=== PATIENT | female | born 1970 | race Caucasian/White ===

== ENCOUNTER 2016-10-25 18:17 | Emergency (ER) | payer MEDICARE, OTHER ==
[2016-10-25 15:58] LABS: ASCORBIC ACID (UR NOT ORDER) NEG (NEG); BILIRUBIN, URINE NEGATIVE (NEG); ER URINALYSIS TAT 0 Hrs 00 Mins; KETONE, URINE 20 MG/DL (NEG); LEUKOCYTE ESTERASE(NOT OR NEG (NEG); NITRITE (URINE) NEG (NEG); WBC (NOT ORDERED) (RFLEX) 2 (0-5)
[2016-10-25 15:58] LABS: BASOPHILS 0.4 %; BASOPHILS ABSOLUTE 0.02 10/3/uL (0.0-0.16); EOSINOPHILS 0 %; ER CBC TAT 0 Hrs 10 Mins; IMMATURE GRANULOCYTES 0.4 %; IMMATURE GRANULOCYTES ABSOLUTE 0.02 10/3/uL (0.0-0.11); LYMPHOCYTES 13.8 %; LYMPHOCYTES ABSOLUTE 0.64 10/3/uL (0.67-4.30); MEAN CORPUS HGB CONC 34.1 g/dL (32.0-36.0); MEAN CORPUSCULAR HEMOGLOB 33.6 pg (26.0-34.0); MEAN CORPUSCULAR VOLUME 98.3 fL (80-100); MEAN PLATELET VOLUME 10.7 fL (9.2-13.0); MONOCYTES 11.9 %; MONOCYTES ABSOLUTE 0.55 10/3/uL (0.21-1.20); NEUTROPHILS 73.5 %; NEUTROPHILS ABSOLUTE 3.41 10/3/uL (2.02-8.40); PLATELET COUNT 203 10/3/uL (150-400); RED CELL COUNT 4.17 10/6/uL (4.0-5.6); WHITE BLOOD CELLS 4.6 10/3/uL (4.5-10.5)
[2016-10-25 16:03] LABS: MANUAL DIFF NO %; RBC DISTRIBUTION WIDTH 12.9 % (12.0-16.0)
[2016-10-25 16:07] LABS: INFLUENZA A SCREEN NEGATIVE (NEGATIVE); INFLUENZA B SCREEN NEGATIVE (NEGATIVE)
[2016-10-25 16:16] LABS: BUN (BLOOD UREA NITROGEN) 8 MG/DL (6-23); CALCIUM, SERUM 10.8 MG/DL (8.5-10.4); CHLORIDE, SERUM 102 MMOL/L (96-112); CO2 (CARBON DIOXIDE) 23 MMOL/L (24-34); CREATININE 0.65 MG/DL (0.55-1.02); GFR AFRICAN AMERICAN 123 ML/MIN (>=60); GFR NON AFRICAN AMERICAN 106 ML/MIN (>=60); GLUCOSE, SERUM 192 MG/DL (60-99); POTASSIUM, SERUM 3.8 MMOL/L (3.5-5.3); SGOT(AST) 49 U/L (5-40); SGPT(ALT) 46 U/L (5-65); SODIUM, SERUM 138 MMOL/L (135-148); TOTAL BILIRUBIN 0.6 MG/DL (0-1.2); TOTAL PROTEIN 8.4 G/DL (6.0-8.5)
[2016-10-25 16:17] LABS: A/G RATIO 0.8 (0.7-1.9); ALBUMIN 3.8 G/DL (3.5-5.0); ALKALINE PHOSPHATASE 46 U/L (45-117); GLOBULIN 4.6 G/DL (2.5-4.1)
[2016-10-25 16:47] LABS: PROCALCITONIN <0.05 ng/mL (<0.5)
[~2016-10-25 18:17] MED LIST: ACIPHEX PO; ADVIL PO; AMB10 PO; B12; B12 PO; BENTYL10 PO; BENTYL20 PO; CALTRA600D PO; CHEMO TREATMENT; CITRACAL PO; CLARIT10 PO; COMP10B PO; CRANBERRY; CRANBERRY300 MG PO; DITRO5 PO; FISH-EPA1000 MG PO; GLUCCHONDR PO; GLUCOTRO10 PO; HUMALOG SC; HUMAPUMP SC; HUMULIN R1 ML SC; LANTUS SC; LEVEMIR SC; LORTAB10 PO; MAGONATE PO; MAGOX4 PO; MAGTRATE500 MG PO; MELATONIN5 M1 PO; MIRALAXPKT PO; MSCONT15 PO; MSCONTIN PO; MSIMMR15 PO; MULTIPLE VIT PO; MULTIVITAMI1 PO; NEUR100 PO; NEXIUM40 PO; NOLV10 PO; NORCO1 TAB PO; NOVLOGPUMP SC; NOVOLOG; OS500+D PO; PAXIL30 MG PO; PAXIL40 MG PO; PHENADOZ25 MG PR; PHENADOZ25 MG RE; PR25 PO; PR25R PO; PR25R PR; PRILOSEC40 MG PO; PRIN5 PO; PROMEGA PO; PROTONIX PO; REG PO; SENTAB PO; SUDAFED 12HR120 MG PO; SYN.05 PO; VITAMIN B-121000 MC1 SL; VITAMIN D1000 UNI1 PO; VITAMIN D31000 UNIT PO; VITE1000 PO; XELODA PO; ZESTRIL20 MG PO; ZYRTEC ALLGY10 MG PO; [UNRECOGNIZED DRUG - OTHER] PO; [UNRECOGNIZED DRUG - OTHER] PO
[2016-11-23] MEDS ORDERED: SYN.05 PO (19:55)
[2016-11-23] MEDS ORDERED: LOM PO (19:56)
[2016-11-23] MEDS ORDERED: MSIMMR15 PO (19:56)
[2016-11-23] MEDS ORDERED: PR25 PO (19:59)
[2016-11-23] MEDS ORDERED: NEXIUM40 PO (19:59)
[2016-11-23] MEDS ORDERED: MSCONTIN PO (19:59)
[2016-11-23] MEDS ORDERED: NOVLOGPUMP SC (20:00)
[2016-11-23] MEDS ORDERED: NEUR100 PO (20:01)
[2016-11-23] MEDS ORDERED: NEUR300 PO (20:01)
[2016-11-23] MEDS ORDERED: [UNRECOGNIZED DRUG - OTHER] TOP (20:04)
[2016-11-23] MEDS ORDERED: MARI5 PO (20:05)
[2016-11-23] MEDS ORDERED: XGEVA120 MG/1.7 SC (20:06)
[2016-11-23] MEDS ORDERED: GRANISETRON SC (20:09)
[2016-11-23] MEDS ORDERED: [UNRECOGNIZED DRUG - OTHER] PO (20:10)
[2016-11-23] MEDS ORDERED: CALTRA600D PO (20:10)
[2016-11-23] MEDS ORDERED: CARBOPLATIN150 MG IV (20:11)
[2017-03-11] MEDS ORDERED: NEUR100 PO (15:20)
[2017-03-11] MEDS ORDERED: FLOVENT220 INH (15:20)
[2017-03-11] MEDS ORDERED: NEUR300 PO (15:20)
[2017-03-11] MEDS ORDERED: LOM PO (15:21)
[2017-03-11] MEDS ORDERED: MSCONTIN PO (15:21)
[2017-03-11] MEDS ORDERED: ATV1 PO (15:21)
[2017-03-11] MEDS ORDERED: CALTRA600D PO (15:22)
[2017-03-11] MEDS ORDERED: XGEVA120 MG/1.7 SC (15:23)
[2017-03-11] MEDS ORDERED: PREVALITE4 G1 PO (15:24)
[2017-03-11] MEDS ORDERED: MSIMMR15 PO (15:25)
[2017-03-11] MEDS ORDERED: PR25 PO (15:25)
[2017-03-11] MEDS ORDERED: NEXIUM40 PO (15:26)
[2017-03-11] MEDS ORDERED: NOVLOGPUMP SC (15:29)
[2017-03-11] MEDS ORDERED: CHEMOTHERAPY IV (15:30)
== END 2016-10-25 20:18 | disposition home or self-care (01) ==
LOC: ER 18:17
PROVIDERS: Emergency Medicine
DX: R19.7 Diarrhea, unspecified (principal); R11.2 Nausea with vomiting, unspecified; C50.919 Malignant neoplasm of unspecified site of unspecified female breast; E10.9 Type 1 diabetes mellitus without complications; I10 Essential (primary) hypertension; J45.909 Unspecified asthma, uncomplicated; Z91.041 Radiographic dye allergy status; Z79.4 Long term (current) use of insulin; Z79.899 Other long term (current) drug therapy
CPT/HCPCS: 71010; 80053; 81001; 82150; 83690; 84145; 85025; 87040; 87804; 96374; 99284; J2550

== ENCOUNTER 2016-11-25 16:08 | Inpatient (IN) | payer MEDICARE, OTHER ==
--- NOTE | ~2016-11-25 | HP ---
History And Physical [id number] [place]. [address] NAME: BETH MILLIGAN : 68 STATUS : ADM IN [facility]#: [id number] AGE: 46 ADM/REG DATE : 11/25/16 MR#: [id number] REPORT SERV DATE: 11/25/16 DICTATED BY: DILIP SETHI DATE: 11/25/16 REPORT STATUS : Draft TRANSCRIBED BY: MODJeaneth DATE: 11/25/16 DATE OF ADMISSION: 11/25/2016 CHIEF COMPLAINT: Nausea, vomiting, and diarrhea. HISTORY OF PRESENT ILLNESS: The patient is a 46-year-old female with known metastatic breast cancer; type 1 diabetes, on insulin pump; and history of gastroparesis, who presented to Dr. Child's office today after discharge from the hospital yesterday. The patient reports that yesterday as soon as she got in the car to go home, she felt more sick. She does report she felt fine when she got discharged from the hospital. Over the course of the night, she started having more nausea and vomiting with diarrhea again. She did take a suppository of Phenergan and felt a little better, but woke up this morning still nauseous and vomiting. Notably, she did not put her insulin pump on this morning and her last dose of insulin was at approximately 9 a.m. She has been unable to keep much down. She did eat some Cheetos in the oncology office today without much difficulty. She did also have a stool, which she was able to provide a sample for in Dr. Child's office. REVIEW OF SYSTEMS: Obtained and is negative with the exception of above HPI. PAST MEDICAL HISTORY: Includes: 1. Metastatic breast cancer. Last dose of chemo, 11/18/2016. 2. Type 1 diabetic, manages on insulin pump. 3. Gastroparesis. 4. Asthma. 5. GERD. 6. Hypertension. PAST SURGICAL HISTORY: Rotator cuff repair, , esophageal stricture with multiple dilatation. SOCIAL HISTORY: Quit smoking at age 24. Denies significant alcohol abuse. FAMILY HISTORY: She did have a family member with lung cancer. HOME MEDICATIONS: List pending at this time to review. PHYSICAL EXAMINATION: VITAL SIGNS: The patient is afebrile, saturating 99% on room air, blood pressure 156/71, pulse of 84. GENERAL: This is a pleasant female, who is alert and oriented x3, in no acute distress. NECK: Supple. LUNGS: Clear to auscultation bilaterally with no wheezes, rales, or rhonchi. The patient has normal respiratory effort. CARDIOVASCULAR: Regular rate and rhythm. HEENT: Moist mucous membranes. Sclerae anicteric. History And Physical [address] [address] NAME: BETH MILLIGAN [place]ERR[place] : 68 STATUS : ADM IN [facility]#: [id number] AGE: 46 ADM/REG DATE : 11/25/16 MR#: [id number] REPORT SERV DATE: 11/25/16 DICTATED BY: DILIP SETHI DATE: 11/25/16 REPORT STATUS : Draft TRANSCRIBED BY: NIRAJ DATE: 11/25/16 ABDOMEN: Soft, nontender, and nondistended. EXTREMITIES: Warm and well perfused. No edema. SKIN: Warm, dry, and intact with no rash. NEUROLOGIC: Cranial nerves II through XII are grossly intact. Face is symmetric. Tongue is midline. LABORATORY DATA: From yesterday reviewed. ASSESSMENT AND PLAN: A 46-year-old with known metastatic breast cancer, presenting with nausea, vomiting, and diarrhea. The patient did better yesterday while in the hospital, however, had recurrence of symptoms at home and this could be her gastroparesis. Also, we will check an MRI to rule out any brain metastases. Stool studies have been ordered. We will provide supportive care. We will have her eat a diet as tolerated. 1. Type 1 diabetes. The patient can manage her own insulin pump. She does not have it with her, although is in route. Blood sugar was about 220, just checked. We will give her 4 units of NovoLog and recheck in about two hours. 2. Metastatic breast cancer status post carboplatin on 11/18/2016. Dr. Patti Child will follow along. 3. Code status is full. Deep vein thrombosis prophylaxis with enoxaparin. FERNY/NIRAJ Dilip Sethi MD / [id number] CC: Dilip Sethi MD
--- NOTE | ~2016-11-25 | DS ---
Discharge Summary [facility] [address] [place]. [address] NAME: BETH MILLIGAN : 68 STATUS : DIS IN PAT#: [id number] AGE: 46 ADM/REG DATE : 11/25/16 MR#: [id number] REPORT SERV DATE: 11/28/16 DICTATED BY: DILIP SETHI DATE: 11/27/16 REPORT STATUS : Draft TRANSCRIBED BY: MODL DATE: 11/27/16 ADMISSION DATE: 11/25/2016 DISCHARGE DATE: 11/27/2016 CHIEF COMPLAINT: Nausea, vomiting, diarrhea. DISCHARGING DIAGNOSES: 1. Nausea, vomiting, diarrhea, possibly due to gastroenteritis versus related to chemo. This has resolved. 2. Type 1 diabetes. 3. Gastroparesis. 4. Metastatic breast cancer. 5. Hypokalemia. HISTORY OF PRESENT ILLNESS: Please see full H and P for details regarding initial presentation. HOSPITAL COURSE: The patient was admitted to the hospital and given supportive care. She had no issues of diarrhea in the hospital. She was C diff negative in the office. She has had some nausea, although no vomiting and tolerating a diet and eager to go home. She will be discharged home. MEDICATIONS: Same as admission. TIME SPENT ON DISCHARGE: Less than 30 minutes. FOLLOWUP: With Dr. Patti Child next week. FERNY/NIRAJ Dilip Sethi MD / [id number] CC: Dilip Sethi MD
[~2016-11-25 16:08] MED LIST changes: +CARBOPLATIN150 MG IV; +GRANISETRON SC; +LOM PO; +MARI5 PO; +NEUR300 PO; +XGEVA120 MG/1.7 SC; +[UNRECOGNIZED DRUG - OTHER] PO; +[UNRECOGNIZED DRUG - OTHER] TOP
[2016-11-25 18:01] LABS: BASOPHILS 0.4 %; BASOPHILS ABSOLUTE 0.02 10/3/uL (0.0-0.16); EOSINOPHILS 1.5 %; EOSINOPHILS ABSOLUTE 0.07 10/3/uL (0.0-0.53); HEMATOCRIT 35.2 % (36.0-48.0); IMMATURE GRANULOCYTES 0.2 %; IMMATURE GRANULOCYTES ABSOLUTE 0.01 10/3/uL (0.0-0.11); LYMPHOCYTES 24.2 %; LYMPHOCYTES ABSOLUTE 1.16 10/3/uL (0.67-4.30); MEAN CORPUS HGB CONC 34.1 g/dL (32.0-36.0); MEAN CORPUSCULAR HEMOGLOB 33.6 pg (26.0-34.0); MEAN CORPUSCULAR VOLUME 98.6 fL (80-100); MONOCYTES 18.6 %; MONOCYTES ABSOLUTE 0.89 10/3/uL (0.21-1.20); NEUTROPHILS 55.1 %; NEUTROPHILS ABSOLUTE 2.64 10/3/uL (2.02-8.40); PLATELET COUNT 250 10/3/uL (150-400); RBC DISTRIBUTION WIDTH 12.9 % (12.0-16.0); RED CELL COUNT 3.57 10/6/uL (4.0-5.6); WHITE BLOOD CELLS 4.8 10/3/uL (4.5-10.5)
[2016-11-25 18:02] LABS: MANUAL DIFF NO %
[2016-11-25 18:12] LABS: BUN (BLOOD UREA NITROGEN) 7 MG/DL (6-23); CALCIUM, SERUM 8.8 MG/DL (8.5-10.4); CHLORIDE, SERUM 104 MMOL/L (96-112); CO2 (CARBON DIOXIDE) 28 MMOL/L (24-34); CREATININE 0.79 MG/DL (0.55-1.02); GFR AFRICAN AMERICAN 103 ML/MIN (>=60); GFR NON AFRICAN AMERICAN 89 ML/MIN (>=60); POTASSIUM, SERUM 3.6 MMOL/L (3.5-5.3); SODIUM, SERUM 139 MMOL/L (135-148)
[2016-11-25 18:13] LABS: GLUCOSE, SERUM 217 MG/DL (60-99)
[2016-11-26 07:40] LABS: BASOPHILS 0.6 %; BASOPHILS ABSOLUTE 0.02 10/3/uL (0.0-0.16); EOSINOPHILS 2.6 %; EOSINOPHILS ABSOLUTE 0.09 10/3/uL (0.0-0.53); HEMOGLOBIN 10.9 g/dL (12.0-16.0); LYMPHOCYTES 28.2 %; LYMPHOCYTES ABSOLUTE 0.99 10/3/uL (0.67-4.30); MEAN CORPUS HGB CONC 34.6 g/dL (32.0-36.0); MEAN CORPUSCULAR HEMOGLOB 33.6 pg (26.0-34.0); MEAN CORPUSCULAR VOLUME 97.2 fL (80-100); MONOCYTES 16.2 %; MONOCYTES ABSOLUTE 0.57 10/3/uL (0.21-1.20); NEUTROPHILS 52.4 %; NEUTROPHILS ABSOLUTE 1.84 10/3/uL (2.02-8.40); PLATELET COUNT 213 10/3/uL (150-400); RBC DISTRIBUTION WIDTH 12.9 % (12.0-16.0); RED CELL COUNT 3.24 10/6/uL (4.0-5.6); WHITE BLOOD CELLS 3.5 10/3/uL (4.5-10.5)
[2016-11-26 07:41] LABS: HEMATOCRIT 31.5 % (36.0-48.0); MANUAL DIFF NO %
[2016-11-26 07:51] LABS: BUN (BLOOD UREA NITROGEN) 8 MG/DL (6-23); CALCIUM, SERUM 7.5 MG/DL (8.5-10.4); CHLORIDE, SERUM 109 MMOL/L (96-112); CO2 (CARBON DIOXIDE) 24 MMOL/L (24-34); CREATININE 0.61 MG/DL (0.55-1.02); GFR AFRICAN AMERICAN 125 ML/MIN (>=60); GFR NON AFRICAN AMERICAN 108 ML/MIN (>=60); GLUCOSE, SERUM 78 MG/DL (60-99); POTASSIUM, SERUM 3.4 MMOL/L (3.5-5.3); SODIUM, SERUM 143 MMOL/L (135-148)
[2017-03-11] MEDS ORDERED: NEUR300 PO (15:20)
[2017-03-11] MEDS ORDERED: NEUR100 PO (15:20)
[2017-03-11] MEDS ORDERED: FLOVENT220 INH (15:20)
[2017-03-11] MEDS ORDERED: LOM PO (15:21)
[2017-03-11] MEDS ORDERED: MSCONTIN PO (15:21)
[2017-03-11] MEDS ORDERED: ATV1 PO (15:21)
[2017-03-11] MEDS ORDERED: CALTRA600D PO (15:22)
[2017-03-11] MEDS ORDERED: XGEVA120 MG/1.7 SC (15:23)
[2017-03-11] MEDS ORDERED: PREVALITE4 G1 PO (15:24)
[2017-03-11] MEDS ORDERED: PR25 PO (15:25)
[2017-03-11] MEDS ORDERED: MSIMMR15 PO (15:25)
[2017-03-11] MEDS ORDERED: NEXIUM40 PO (15:26)
[2017-03-11] MEDS ORDERED: NOVLOGPUMP SC (15:29)
[2017-03-11] MEDS ORDERED: CHEMOTHERAPY IV (15:30)
== END 2016-11-27 15:30 | disposition home or self-care (01) | DRG 392 ==
LOC: 4SO 16:08
PROVIDERS: Internal Medicine
DX: K52.9 Noninfective gastroenteritis and colitis, unspecified (principal); C77.3 Secondary and unspecified malignant neoplasm of axilla and upper limb lymph nodes; C78.7 Secondary malignant neoplasm of liver and intrahepatic bile duct; R11.2 Nausea with vomiting, unspecified; T45.1X5A Adverse effect of antineoplastic and immunosuppressive drugs, initial encounter; E10.43 Type 1 diabetes mellitus with diabetic autonomic (poly)neuropathy; C50.411 Malignant neoplasm of upper-outer quadrant of right female breast; I10 Essential (primary) hypertension; K31.84 Gastroparesis; J45.909 Unspecified asthma, uncomplicated; K21.9 Gastro-esophageal reflux disease without esophagitis; Z96.41 Presence of insulin pump (external) (internal); Z98.890 Other specified postprocedural states; Z87.891 Personal history of nicotine dependence; Z79.4 Long term (current) use of insulin; E87.6 Hypokalemia; M54.5 Low back pain; Z79.899 Other long term (current) drug therapy
CPT/HCPCS: 70553; 80048; 82962; 83735; 84132; 85025; 87493; 87493-59; 96372; 96374; 96375; 96376; A9270-GY; A9577; G0378; G0463; J2550

== ENCOUNTER 2016-12-20 15:01 | Inpatient (IN) | payer MEDICARE, OTHER ==
--- NOTE | ~2016-12-20 | HP ---
History And Physical [facility] [address] [place]. [address] NAME: BETH MILLIGAN : 68 STATUS : ADM Amber PAT#: [id number] AGE: 46 ADM/REG DATE : 12/20/16 MR#: [id number] REPORT SERV DATE: 12/20/16 DICTATED BY: DEDE STAFFORD DATE: 12/20/16 REPORT STATUS : Draft TRANSCRIBED BY: MODL DATE: 12/20/16 DATE OF ADMISSION: 12/20/2016 CHIEF COMPLAINT: Intractable nausea, vomiting, diarrhea, and fever at home, recent finished chemotherapy, and chief complaint. HISTORY OF PRESENT ILLNESS: This is a very pleasant 46-year-old female, patient of Dr. Patti Child, with known metastatic breast cancer. She is receiving weekly chemotherapy with carboplatin and denosumab under the care of Dr. Patti Child. She also has a history of diabetes type 1, managed on insulin pump. She has a history of gastroparesis, asthma, GERD, prior history of hypothyroidism who has received a recent this week chemotherapy, and after that, last night, she started to feel sick with nausea, vomiting, diarrhea again, and some fever. It is important to note that the patient became extremely dehydrated. She was unable to keep anything down, and as a result of the persistence of the fevers, she has decided to come to [facility]. It is also important to note that the patient has a chronic diarrhea especially after chemotherapy for which she is managing with Lomotil. The patient did not have any hematemesis or melena. No hematochezia. No other complaints. Notably again, she has been unable to keep much anything down and she did have diarrhea as of today, but no hematemesis or melena, no hematochezia. No other complaints. The patient has been evaluated in the emergency room and Hospitalist Service has been asked for admission for further evaluation and treatment. PAST MEDICAL HISTORY: Significant for metastatic cancer, last chemotherapy this week; diabetes type 2, on insulin pump; gastroparesis; GERD; asthma; and history of esophageal stricture. PAST SURGICAL HISTORY: Includes lumpectomy, esophageal dilation secondary to esophageal stricture, , as well as rotator cuff surgery. SOCIAL HISTORY: The patient denies tobacco, alcohol, or IV drugs. She quit smoking when she was 24. ALLERGIES: SHE IS ALLERGIC TO TYLENOL WELL ADHESIVE TAPE AND ZOFRAN. FAMILY HISTORY: Significant for cancer. MEDICATIONS: Listed as her home medication: 1. Calcium and vitamin D. 2. Carboplatin and denosumab. 3. Lomotil. 4. Marinol. 5. Nexium. 6. Gabapentin. 7. NovoLog. 8. Synthroid. 9. MS Contin. History And Physical [address] [place]. [address] NAME: BETH MILLIGAN : 68 STATUS : ADM Amber PAT#: [id number] AGE: 46 ADM/REG DATE : 12/20/16 MR#: [id number] REPORT SERV DATE: 12/20/16 DICTATED BY: DEDE STAFFORD DATE: 12/20/16 REPORT STATUS : Draft TRANSCRIBED BY: NIRAJ DATE: 12/20/16 10.Morphine ER. 11.Phenergan. 12. over the counter. REVIEW OF SYSTEMS: A 14-point review of systems has been obtained and pertinent positive has been listed into the history of present illness. Otherwise, negative except those underlying above. PHYSICAL EXAMINATION: VITAL SIGNS: The patient currently is afebrile at 99 oral; though blood pressure 137/80; heart rate 130, sinus tach; respiratory rate 24; and saturating 98% on room air. GENERAL: She is a very pleasant, well-developed, well-nourished female, in no acute distress. She is alert and oriented x3. Nonfocal. She follows all her commands appropriately. HEENT: Show pupils are equal, round, and reactive to light. Extraocular movements intact. NECK: No JVD. No lymphadenopathy. No thyromegaly appreciated. CHEST: Eval shows bilateral air entry. Clear anteroposterior. No wheezes, rhonchi, or crackles appreciated. CARDIOVASCULAR: She has regular rate and rhythm. Tachycardic. S1-S2 positive. No S3, no S4. No murmurs, rubs, or gallops appreciated. ABDOMEN: Soft with positive bowel sounds. Nontender. No guarding. No rebound. EXTREMITIES: No clubbing, cyanosis, or edema. NEUROLOGIC: The patient is alert and oriented x3. Nonfocal. She follows all her commands appropriately. LABORATORY DATA: Labs from today include sodium 136, potassium 3.9, chloride 100, CO2 of 26, BUN 12, creatinine is 0.76, glucose 306. Total bilirubin is 1.1, alkaline phosphatase 58, ALT 53, AST 52. Her lipase is 77. Her lactate is 1.3. Her white count is 6.6, hemoglobin 12.7, hematocrit 36.6, platelets are 295. Her UA performed in the emergency room showed negative leukocyte esterase, negative nitrites, occasional bacteria, and blood cultures currently are pending. There is a chest x-ray, portable, performed in the emergency room that shows no acute cardiopulmonary abnormalities that could be appreciated. ASSESSMENT AND PLAN: 1. This is a very pleasant 46-year-old female with a history of metastatic breast cancer with the intractable nausea, vomiting, and diarrhea most likely related to her chemotherapy. 2. Diabetes type 1, on insulin pump. 3. History of gastroparesis. 4. Metastatic breast cancer. 5. Hypokalemia. PLAN: 1. The patient is going to be admitted for observation. We are going to hydrate her aggressively, start her on clear liquid diet, and advance as tolerated. We are going History And Physical [address] [address] NAME: BETH MILLIGAN [place] : 68 STATUS : ADM Amber PAT#: [id number] AGE: 46 ADM/REG DATE : 12/20/16 MR#: [id number] REPORT SERV DATE: 12/20/16 DICTATED BY: DEDE STAFFORD DATE: 12/20/16 REPORT STATUS : Draft TRANSCRIBED BY: NIRAJ DATE: 12/20/16 to check her stool studies and place her on empiric antibiotics with Levaquin and Flagyl. Blood cultures as well. Stools for fecal leukocytes, for bacterial pathogen, ova and parasites. Provide supportive treatment with nausea and pain control. 2. Diabetes type 1, on insulin pump. While patient unable to keep anything down, we are going to hold the insulin pump. We are going to get Accu-Cheks q.6 hours and sliding scale insulin subcutaneously level 2. Check a hemoglobin A1c as well. Once the patient is able to tolerate p.o. intake, we are going to restart her on insulin pump. 3. Metastatic breast cancer. We will consult Dr. Patti Child to follow along with us. 4. History of hypothyroidism. We will continue her home medication. Check a TSH and a free T4. The patient is a full code according to the patient's prior wishes well stated. Further workup and recommendation pending above. It is worthwhile to note that the patient is going to be followed up by Dr. Jose Guadalupe Gonzalez. CF/MODL Dede Stafford M.D. / [id number] CC: Jose Guadalupe Gonzalez II, MD NO PCP
--- NOTE | ~2016-12-20 | DS ---
Discharge Summary [address] [place]. [address] NAME: BETH MILLIGAN : 68 STATUS : DIS IN PAT#: [id number] AGE: 46 ADM/REG DATE : 12/21/16 MR#: [id number] REPORT SERV DATE: 12/23/16 DICTATED BY: DILIP SETHI DATE: 12/22/16 REPORT STATUS : Draft TRANSCRIBED BY: MODL DATE: 12/22/16 ADMISSION DATE: 12/21/2016 DISCHARGE DATE: 12/22/2016 CHIEF COMPLAINT ON ADMISSION: Nausea, vomiting, and diarrhea. DISCHARGING DIAGNOSES: 1. Nausea, vomiting, and diarrhea suspected due to chemotherapy. 2. History of gastroparesis. 3. Type 1 diabetes, on insulin pump. 4. Breast cancer. HISTORY OF PRESENT ILLNESS: Please see full H and P by Dr. Lakhani for details regarding initial presentation. HOSPITAL COURSE: The patient was admitted to the hospital. She was provided with supportive care and per previous admissions, her symptoms have resolved with time and supportive care. The patient does not feel this is due to her gastroparesis, likely due to her chemotherapy. She is to talk with Dr. Child regarding future plans for chemotherapy changes. DISPOSITION: Home. FOLLOWUP: With Dr. Child as an outpatient for further planning regarding treatment for her metastatic breast cancer. Time spent on this discharge is less than 30 minutes. FERNY/NIRAJ Dilip Sethi MD / [id number] CC: Dilip Sethi MD
[2016-12-20 15:16] LABS: BASOPHILS 0 %; EOSINOPHILS 0 %; HEMOGLOBIN 12.7 g/dL (12.0-16.0); IMMATURE GRANULOCYTES 0.3 %; IMMATURE GRANULOCYTES ABSOLUTE 0.02 10/3/uL (0.0-0.11); LYMPHOCYTES 10.8 %; LYMPHOCYTES ABSOLUTE 0.71 10/3/uL (0.67-4.30); MEAN CORPUS HGB CONC 34.7 g/dL (32.0-36.0); MEAN CORPUSCULAR VOLUME 97.9 fL (80-100); MEAN PLATELET VOLUME 10.1 fL (9.2-13.0); MONOCYTES 5.8 %; MONOCYTES ABSOLUTE 0.38 10/3/uL (0.21-1.20); NEUTROPHILS 83.1 %; NEUTROPHILS ABSOLUTE 5.47 10/3/uL (2.02-8.40); RBC DISTRIBUTION WIDTH 13.4 % (12.0-16.0); RED CELL COUNT 3.74 10/6/uL (4.0-5.6)
[2016-12-20 15:17] LABS: HEMATOCRIT 36.6 % (36.0-48.0); MANUAL DIFF NO %; PLATELET COUNT 295 10/3/uL (150-400); WHITE BLOOD CELLS 6.6 10/3/uL (4.5-10.5)
[2016-12-20 15:29] LABS: ASCORBIC ACID (UR NOT ORDER) NEG (NEG); BILIRUBIN, URINE NEGATIVE (NEG); ER URINALYSIS TAT 0 Hrs 23 Mins; KETONE, URINE 80 MG/DL (NEG); LEUKOCYTE ESTERASE(NOT OR NEG (NEG); NITRITE (URINE) NEG (NEG); WBC (NOT ORDERED) (RFLEX) 1 (0-5)
[2016-12-20 15:32] LABS: A/G RATIO 0.7 (0.7-1.9); ALBUMIN 3.5 G/DL (3.5-5.0); ALKALINE PHOSPHATASE 58 U/L (45-117); CHLORIDE, SERUM 100 MMOL/L (96-112); CO2 (CARBON DIOXIDE) 26 MMOL/L (24-34); CREATININE 0.76 MG/DL (0.55-1.02); GFR AFRICAN AMERICAN 108 ML/MIN (>=60); GFR NON AFRICAN AMERICAN 93 ML/MIN (>=60); GLOBULIN 5.2 G/DL (2.5-4.1); POTASSIUM, SERUM 3.9 MMOL/L (3.5-5.3); SGOT(AST) 52 U/L (5-40); SGPT(ALT) 43 U/L (5-65); TOTAL PROTEIN 8.7 G/DL (6.0-8.5)
[2016-12-20 15:33] LABS: BUN (BLOOD UREA NITROGEN) 12 MG/DL (6-23); CALCIUM, SERUM 9.7 MG/DL (8.5-10.4); GLUCOSE, SERUM 306 MG/DL (60-99); SODIUM, SERUM 136 MMOL/L (135-148); TOTAL BILIRUBIN 1.1 MG/DL (0-1.2)
[2016-12-20 15:57] LABS: LACTATE 1.3 MMOL/L (0.3-2.4)
[2016-12-20] MEDS ORDERED: PR25R PR (17:52)
[2016-12-21 01:50] LABS: INTERNATIONAL NORMAL RATI 1.2 UNITS (-); PROTIME (NOT ORD) 14.8 SEC (12.0-14.5)
[2016-12-21 01:51] LABS: PARTIAL THROMBO TIME 30.3 SEC (22.5-37.2)
[2016-12-21 02:33] LABS: FOLATE 22.7 NG/ML (>5.2)
[2016-12-21 02:43] LABS: PROCALCITONIN <0.05 ng/mL (<0.5)
[2016-12-21 04:57] LABS: ASCORBIC ACID (UR NOT ORDER) NEG (NEG); BILIRUBIN, URINE NEGATIVE (NEG); KETONE, URINE NEGATIVE (NEG); LEUKOCYTE ESTERASE(NOT OR TRACE (NEG); WBC (NOT ORDERED) (RFLEX) 7 (0-5)
[2016-12-21 08:11] LABS: BASOPHILS 0.4 %; BASOPHILS ABSOLUTE 0.02 10/3/uL (0.0-0.16); EOSINOPHILS 1.7 %; EOSINOPHILS ABSOLUTE 0.08 10/3/uL (0.0-0.53); HEMOGLOBIN 10.6 g/dL (12.0-16.0); IMMATURE GRANULOCYTES 0.4 %; IMMATURE GRANULOCYTES ABSOLUTE 0.02 10/3/uL (0.0-0.11); LYMPHOCYTES 23.5 %; LYMPHOCYTES ABSOLUTE 1.13 10/3/uL (0.67-4.30); MEAN CORPUS HGB CONC 33.1 g/dL (32.0-36.0); MEAN CORPUSCULAR HEMOGLOB 33.2 pg (26.0-34.0); MEAN CORPUSCULAR VOLUME 100.3 fL (80-100); MEAN PLATELET VOLUME 9.4 fL (9.2-13.0); MONOCYTES 14.4 %; MONOCYTES ABSOLUTE 0.69 10/3/uL (0.21-1.20); NEUTROPHILS 59.6 %; NEUTROPHILS ABSOLUTE 2.86 10/3/uL (2.02-8.40); PLATELET COUNT 218 10/3/uL (150-400); RBC DISTRIBUTION WIDTH 13.5 % (12.0-16.0); RED CELL COUNT 3.19 10/6/uL (4.0-5.6); WHITE BLOOD CELLS 4.8 10/3/uL (4.5-10.5)
[2016-12-21 08:12] LABS: MANUAL DIFF NO %
[2016-12-21 08:27] LABS: A/G RATIO 0.7 (0.7-1.9); ALBUMIN 2.6 G/DL (3.5-5.0); ALKALINE PHOSPHATASE 40 U/L (45-117); BUN (BLOOD UREA NITROGEN) 11 MG/DL (6-23); CHLORIDE, SERUM 112 MMOL/L (96-112); CO2 (CARBON DIOXIDE) 25 MMOL/L (24-34); GFR AFRICAN AMERICAN 120 ML/MIN (>=60); GFR NON AFRICAN AMERICAN 103 ML/MIN (>=60); GLUCOSE, SERUM 176 MG/DL (60-99); POTASSIUM, SERUM 3.9 MMOL/L (3.5-5.3); SGOT(AST) 39 U/L (5-40); SGPT(ALT) 31 U/L (5-65); SODIUM, SERUM 145 MMOL/L (135-148); TOTAL BILIRUBIN 0.7 MG/DL (0-1.2); TOTAL PROTEIN 6.6 G/DL (6.0-8.5)
[2016-12-22 05:21] LABS: BASOPHILS 0.3 %; BASOPHILS ABSOLUTE 0.01 10/3/uL (0.0-0.16); EOSINOPHILS 4.2 %; EOSINOPHILS ABSOLUTE 0.14 10/3/uL (0.0-0.53); HEMATOCRIT 31.2 % (36.0-48.0); HEMOGLOBIN 10.4 g/dL (12.0-16.0); IMMATURE GRANULOCYTES 0.3 %; IMMATURE GRANULOCYTES ABSOLUTE 0.01 10/3/uL (0.0-0.11); MANUAL DIFF NO %; MEAN CORPUS HGB CONC 33.3 g/dL (32.0-36.0); MEAN CORPUSCULAR HEMOGLOB 33.5 pg (26.0-34.0); MEAN CORPUSCULAR VOLUME 100.6 fL (80-100); MEAN PLATELET VOLUME 9.2 fL (9.2-13.0); MONOCYTES 14.1 %; MONOCYTES ABSOLUTE 0.47 10/3/uL (0.21-1.20); NEUTROPHILS 48.1 %; PLATELET COUNT 184 10/3/uL (150-400); RBC DISTRIBUTION WIDTH 13.4 % (12.0-16.0); WHITE BLOOD CELLS 3.3 10/3/uL (4.5-10.5)
[2016-12-22 05:35] LABS: CALCIUM, SERUM 8.5 MG/DL (8.5-10.4); CHLORIDE, SERUM 110 MMOL/L (96-112); CO2 (CARBON DIOXIDE) 24 MMOL/L (24-34); CREATININE 0.66 MG/DL (0.55-1.02); GFR AFRICAN AMERICAN 122 ML/MIN (>=60); GFR NON AFRICAN AMERICAN 105 ML/MIN (>=60); POTASSIUM, SERUM 3.6 MMOL/L (3.5-5.3); SODIUM, SERUM 145 MMOL/L (135-148)
[2016-12-22 05:36] LABS: BUN (BLOOD UREA NITROGEN) 6 MG/DL (6-23); GLUCOSE, SERUM 87 MG/DL (60-99)
[2017-03-11] MEDS ORDERED: NEUR300 PO (15:20)
[2017-03-11] MEDS ORDERED: FLOVENT220 INH (15:20)
[2017-03-11] MEDS ORDERED: NEUR100 PO (15:20)
[2017-03-11] MEDS ORDERED: MSCONTIN PO (15:21)
[2017-03-11] MEDS ORDERED: ATV1 PO (15:21)
[2017-03-11] MEDS ORDERED: LOM PO (15:21)
[2017-03-11] MEDS ORDERED: CALTRA600D PO (15:22)
[2017-03-11] MEDS ORDERED: XGEVA120 MG/1.7 SC (15:23)
[2017-03-11] MEDS ORDERED: PREVALITE4 G1 PO (15:24)
[2017-03-11] MEDS ORDERED: MSIMMR15 PO (15:25)
[2017-03-11] MEDS ORDERED: PR25 PO (15:25)
[2017-03-11] MEDS ORDERED: NEXIUM40 PO (15:26)
[2017-03-11] MEDS ORDERED: NOVLOGPUMP SC (15:29)
[2017-03-11] MEDS ORDERED: CHEMOTHERAPY IV (15:30)
== END 2016-12-22 16:02 | disposition home or self-care (01) | DRG 918 ==
LOC: ER 15:01 → 4EA 18:17
PROVIDERS: Emergency Medicine; Internal Medicine
DX: T45.1X5A Adverse effect of antineoplastic and immunosuppressive drugs, initial encounter (principal); C50.919 Malignant neoplasm of unspecified site of unspecified female breast; E83.42 Hypomagnesemia; E10.9 Type 1 diabetes mellitus without complications; Z96.41 Presence of insulin pump (external) (internal); E87.6 Hypokalemia
CPT/HCPCS: 71010; 80048; 80053; 81001; 82272; 82607; 82746; 82962; 83036; 83605; 83690; 83735; 84145; 85025; 85610; 85730; 87040; 87328; 87329; 87493; 87493-59; 89055; 96374; 96375; 99285; A9270-GY; J1885; J1956; J2550; J3475